=== PATIENT | female | born 1965 | race Caucasian/White ===

== ENCOUNTER 2019-07-17 19:03 | Emergency (ER) | payer OTHER, SELFPAY ==
[2019-07-17 19:14] VITALS: BP 115/74; PULSE 100; RESP 16; TEMP 36.9; O2SAT 98; BMI 19.5
[2019-07-17] MEDS: tetracaine 0.5% Op Soln 4 mL Btl 1 DROP EYE-RIGHT (19:27)
[2019-07-17] MEDS: fluorescein 1 mg Strip EYE-RIGHT (19:27)
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
[2019-07-17 19:47] VITALS: PULSE 88; RESP 18; O2SAT 99
== END 2019-07-17 20:45 | disposition home or self-care (01) ==
PROVIDERS: Emergency Provider Emergency Medicine; Family Provider Urology; PCP Urology
DX: S05.01XA Injury of conjunctiva and corneal abrasion without foreign body, right eye, initial encounter (principal); W26.8XXA Contact with other sharp object(s), not elsewhere classified, initial encounter; E11.9 Type 2 diabetes mellitus without complications; I10 Essential (primary) hypertension; E78.5 Hyperlipidemia, unspecified; Z79.4 Long term (current) use of insulin
CPT/HCPCS: 12345; 99281; 99283

== ENCOUNTER → 2020-09-18 16:15 | Outpatient (BNVA) | payer SELFPAY | PROVIDERS: Family Provider Urology; PCP Urology; Visit Provider Nurse Practitioner Family | DX: R30.0 Dysuria (principal); A60.00 Herpesviral infection of urogenital system, unspecified; L08.89 Other specified local infections of the skin and subcutaneous tissue | CPT/HCPCS: 81003; 87086; 87491; 87530; 87591; 87661 ==

== ENCOUNTER → 2021-08-13 10:24 | Outpatient (BNVA) | payer SELFPAY | PROVIDERS: Family Provider Urology; PCP Urology; Visit Provider Dermatology | DX: Z01.89 Encounter for other specified special examinations (principal) ==

== ENCOUNTER → 2021-11-12 10:11 | Outpatient (BNVA) | payer SELFPAY | PROVIDERS: Family Provider Urology; PCP Urology; Visit Provider Dermatology | DX: Z01.89 Encounter for other specified special examinations (principal) ==

== ENCOUNTER → 2022-02-11 09:43 | Outpatient (BNVA) | payer SELFPAY | PROVIDERS: Family Provider Urology; PCP Urology; Referring Provider Dermatology; Visit Provider Dermatology | DX: Z01.89 Encounter for other specified special examinations (principal) ==

== ENCOUNTER → 2022-03-10 15:48 | Outpatient (BNVA) | payer BC, SELFPAY | PROVIDERS: Family Provider Urology; PCP Urology; Visit Provider Nurse Practitioner | DX: R05.9 Cough, unspecified (principal); F41.9 Anxiety disorder, unspecified; E11.65 Type 2 diabetes mellitus with hyperglycemia; J06.9 Acute upper respiratory infection, unspecified; J40 Bronchitis, not specified as acute or chronic | CPT/HCPCS: 87400; 87426 ==

== ENCOUNTER → 2022-08-12 10:56 | Outpatient (BNVA) | payer SELFPAY | PROVIDERS: Family Provider Urology; PCP Nurse Practitioner; Referring Provider Nurse Practitioner; Visit Provider Dermatology | DX: Z01.89 Encounter for other specified special examinations (principal) ==

== ENCOUNTER → 2022-11-11 10:15 | Outpatient (BNVA) | payer BC, SELFPAY | PROVIDERS: Family Provider Urology; PCP Nurse Practitioner; Visit Provider Dermatology | DX: Z01.89 Encounter for other specified special examinations (principal) ==

== ENCOUNTER → 2023-02-10 11:03 | Outpatient (BNVA) | payer SELFPAY | PROVIDERS: Family Provider Urology; PCP Nurse Practitioner; Visit Provider Dermatology | DX: Z01.89 Encounter for other specified special examinations (principal) ==

== ENCOUNTER → 2023-03-25 09:01 | Outpatient (BNVA) | payer SELFPAY | PROVIDERS: Family Provider Urology; PCP Nurse Practitioner; Visit Provider Nurse Practitioner | DX: M25.521 Pain in right elbow (principal) | CPT/HCPCS: 73080 ==

== ENCOUNTER → 2023-05-12 09:54 | Outpatient (BNVA) | payer SELFPAY | PROVIDERS: Family Provider Urology; PCP Nurse Practitioner; Visit Provider Dermatology | DX: Z01.89 Encounter for other specified special examinations (principal) ==